=== PATIENT | male | born 1950 | race American Indian/Alaskan Native ===

== ENCOUNTER 2016-12-26 09:35 | Outpatient (CLI) | payer MEDICARE ==
--- NOTE | 2016-12-26 10:21 | XRay Report ---
Left hand 3 views: History: Left hand pain. Findings: There is deformity noted at the proximal interphalangeal joint fifth finger left hand. Arthritic changes are noted the adjacent interphalangeal joint. The first, second, third and fourth fingers appears unremarkable. No periosteal reaction. No soft tissue calcification. Mild arthritic changes also noted at the first carpometacarpal joint. Impression: Findings as detailed above. Deformity probably related to old injury. Clinical correlation advised.
== END 2016-12-26 09:36 | disposition home or self-care (01) ==
LOC: XRAY 09:35
PROVIDERS: ATTEND Family Medicine
DX: M13.842 Other specified arthritis, left hand (principal); I10 Essential (primary) hypertension; Z87.891 Personal history of nicotine dependence

== ENCOUNTER 2020-11-12 16:35 | Inpatient (IN) | payer MEDICARE ==
[2020-11-21 10:13] VITALS: BP 157/100
== END 2020-11-21 15:41 | disposition home health service (06) | DRG 853 ==
LOC: ED 16:35 → CC1 19:18 → 4A 11-14 17:04
PROVIDERS: ADMIT Internal Medicine; ATTEND Internal Medicine
PROC: 0D160ZA Bypass Stomach to Jejunum, Open Approach (ICD-10-PCS; principal; 2020-11-13)
PROC: 0DT90ZZ Resection of Duodenum, Open Approach (ICD-10-PCS; 2020-11-13)
PROC: 0WQF0ZZ Repair Abdominal Wall, Open Approach (ICD-10-PCS; 2020-11-13)
DX: A41.9 Sepsis, unspecified organism (principal); K65.9 Peritonitis, unspecified; K26.5 Chronic or unspecified duodenal ulcer with perforation; R65.21 Severe sepsis with septic shock; J18.9 Pneumonia, unspecified organism; J96.21 Acute and chronic respiratory failure with hypoxia; K85.90 Acute pancreatitis without necrosis or infection, unspecified; N17.9 Acute kidney failure, unspecified; K43.0 Incisional hernia with obstruction, without gangrene; E87.1 Hypo-osmolality and hyponatremia; E87.0 Hyperosmolality and hypernatremia; F10.20 Alcohol dependence, uncomplicated; I10 Essential (primary) hypertension; E83.42 Hypomagnesemia; F17.200 Nicotine dependence, unspecified, uncomplicated; M19.90 Unspecified osteoarthritis, unspecified site; Z71.6 Tobacco abuse counseling; Y90.9 Presence of alcohol in blood, level not specified; K66.8 Other specified disorders of peritoneum; K70.30 Alcoholic cirrhosis of liver without ascites; E87.5 Hyperkalemia; E86.9 Volume depletion, unspecified; I95.9 Hypotension, unspecified; I48.0 Paroxysmal atrial fibrillation; E87.8 Other disorders of electrolyte and fluid balance, not elsewhere classified; E83.39 Other disorders of phosphorus metabolism
CPT/HCPCS: 36415; 70450; 71045; 71250; 74176; 74246; 80048; 80053; 80320; 81001; 82140; 82550; 82565; 82570; 82962; 83690; 83735; 84100; 84145; 84300; 84443; 84484; 85007; 85025; 85027; 85379; 85610; 85730; 86850; 86900; 86901; 87040; 87086; 88305; 88307; 88342; 93005; 93306; 94640; 96365; 96375; G0378; C9113; G0480; J0282; J0330; J0360; J0610; J0692; J1100; J1160; J1170; J1644; J1815; J2060; J2270; J2370; J2405; J2543; J2704; J2710; J3010; J3411; J3475; J3480; J7030; J7040; J7042; J7050; J7060; J7070; J7120; Q9963